=== PATIENT | female | born 1950 | race Caucasian/White ===

== ENCOUNTER → 2018-03-07 | Outpatient (CLI) | payer MEDICARE, BC ==
[~2018-03-07] MED LIST: ALEVE 220MG220 MG PO; AMITRIPTYLINE10 MG PO; CALCIUM WITH D31 CTB PO; CARDIZEM CD 18180 MG PO; CEFACLOR250 MG PO; COZAAR100 MG PO; DEPAKOTE DR500 MG PO; DEPAKOTE ER 25250 MG PO; DEPAKOTE ER 50500 MG PO; FISH OIL CONC1000 MG PO; FOSAMAX 10M10 MG/TAB PO; GLUCOSAMINE/CHONDROI PO; HYZAAR 25 MG-101 TAB PO; INDERAL LA120 MG PO; INDERAL60 MG PO; LODOSYN 25MG25 MG PO; LUTEIN20 M1 PO; MACROBID 1100 MG/CAP PO; MASON NATURAL1200 MG PO; MULTIVITAMIN1 CTB PO; OSCAL 500MG/VI500 MG PO; PRIL40 PO; SELSUN 120 ML120 ML; SINEMET 25/101 UDTAB PO; TRICOR145 MG PO; VESICARE10 MG PO
== END ==
LOC: MC.RAD 13:00
DX: Z12.31 Encounter for screening mammogram for malignant neoplasm of breast (principal)

== ENCOUNTER → 2019-03-16 | Outpatient (CLI) | payer MEDICARE, BC | LOC: MC.RAD 09:59 | DX: Z12.31 Encounter for screening mammogram for malignant neoplasm of breast (principal) ==

== ENCOUNTER → 2020-04-17 | Outpatient (CLI) | payer MEDICARE, BC | LOC: MC.RAD 15:50 | DX: Z12.31 Encounter for screening mammogram for malignant neoplasm of breast (principal) ==

== ENCOUNTER → 2022-04-28 | Outpatient (CLI) | payer MEDICARE, BC | LOC: MC.RAD 11:04 | DX: Z12.31 Encounter for screening mammogram for malignant neoplasm of breast (principal) ==

== ENCOUNTER 2022-05-20 14:59 | Emergency (ER) | payer MEDICARE, BC ==
[~2022-05-20] VITALS: Ht 165.1 cm; Wt 86.4 kg
[2022-05-20] MEDS ORDERED: NORCO 325 MG-51 TAB PO (15:50)
[2022-05-20 16:11] VITALS: BP 152/84; PULSE 79; TEMP 98.7
== END 2022-05-20 16:11 | disposition home or self-care (01) ==
LOC: COL.ER 14:59
DX: S50.11XA Contusion of right forearm, initial encounter (principal); Z86.718 Personal history of other venous thrombosis and embolism; Z79.01 Long term (current) use of anticoagulants; V43.52XA Car driver injured in collision with other type car in traffic accident, initial encounter; Y92.410 Unspecified street and highway as the place of occurrence of the external cause

== ENCOUNTER 2024-02-16 11:38 | Outpatient (CLI) | payer MEDICARE, BC ==
[~2024-02-16] VITALS: Ht 165.1 cm; Wt 76.0 kg
[~2024-02-16 11:38] MED LIST changes: +NORCO 325 MG-51 TAB PO
[2024-02-16 11:47] VITALS: BP 145/77; PULSE 60; TEMP 98.6
[2024-02-16] MEDS ORDERED: TOPROL XL 25MG25 MG PO (11:59)
[2024-02-16] MEDS ORDERED: MULTIPLE VITAMI1 CAP PO (12:00)
[2024-02-16] MEDS ORDERED: Denosumab 60 MG/ML SYRINGE SQ ONE (12:00)
--- NOTE | 2024-02-16 12:04 | NUR ---
pt tolerated injection well and vs remained within normal limits. pt ambulated independently to main lobby upon discharge. pt free from acute concerns and complaints.
[2024-02-22] MEDS ORDERED: ZOFRAN 4MG T4 MG/TAB PO (16:58)
[2024-02-22] MEDS ORDERED: PHENERGAN 25 TA25 MG PO (16:58)
== END 2024-02-16 12:05 | disposition home or self-care (01) ==
LOC: EUO 11:38
DX: M81.0 Age-related osteoporosis without current pathological fracture (principal)
CPT/HCPCS: J0897